=== PATIENT | female | born 1970 | race African-American/Black ===

== ENCOUNTER 2016-10-20 01:27 | Inpatient (IN) | payer OTHER ==
--- NOTE | ~2016-10-20 | PN ---
Unit #: [id number] #: [id number] Patient: DAYLIN ARELLANO [id number] [facility] [address] [place] [address] [id number] MR#: [id number] NAME: DAYLIN ARELLANO ROOM: [facility] Age: 46 Sex: F Admission Date: 10/20/2016 : 1970 Attending Physician: Marciano Lyn M.D. Admitting Physician: Marciano Lyn M.D. Primary Care Physician: Jose Chadn PROGRESS NOTES DATE 10/23/2016 DISCUSSION Ms. Daylin Arellano is a 46-year-old female, seen on 10/23/2016. The patient interviewed, chart reviewed, and obtained information from the nursing staff. The patient continues to be sad, dysphoric, anxious, reported feeling sad, depressed but making progress. Vital signs stable, 98.4, 97, and 110/84. The patient was able to participate in group, but reporting flat affect, sad, dysphoric mood. The patient was able to maintain safe behavior. REVIEW OF SYSTEMS Complete review of systems unremarkable. MENTAL STATUS EXAMINATION General appearance: Patient dressed casually in hospital attire. Attention span and concentration, poor. Oriented to place and person. Mood and affect, labile. Speech, monotone. Thought process, concrete. The patient denied any thoughts of harming self or others or any psychotic symptoms. Recent and remote memory, poor. Insight and judgment, poor. DIAGNOSES 1. Mood disorder, NOS. 2. Cocaine use disorder, severe. ASSESSMENT/PLAN Advised to continue with the current medication and therapeutic protocol and if needed consider further adjustment of medication. Dictated by... Jose Sullivan/davion TD: 10/26/2016 06:03 JOB #: [id number] Unit #: [id number] #: [id number] Patient: DAYLIN ARELLANO PROGRESS NOTES Page 1 of 1 X Marciano Lyn MD PROGRESS NOTE
--- NOTE | ~2016-10-20 | PN ---
Unit #: [id number] #: [id number] Patient: DAYLIN ARELLANO [id number] [facility] [address] [place] [address] [id number] MR#: [id number] NAME: DAYLIN ARELLANO ROOM: [facility] Age: 46 Sex: F Admission Date: 10/20/2016 : 1970 Attending Physician: Marciano Lyn M.D. Admitting Physician: Marciano Lyn M.D. Primary Care Physician: Aldair Pat M.D. [facility] PROGRESS NOTES DATE 10/22/2016 DISCUSSION Ms. Daylin Arellano is a 46-year-old female seen on 10/22/2016. Patient interviewed. Chart reviewed. Obtained information from nursing staff. Patient was compliant, cooperative. Mood sad, dysphoric, flat affect, guarded. Patient reports sleeping good, decrease in anxiety but still feeling sad, depressed, withdrawn, isolative, guarded. Patient tolerating medication fairly well. Still seclusive, isolative, guarded. Complete review of system unremarkable. MENTAL STATUS EXAMINATION General appearance, patient dressed casually. Attention span, concentration fair. Oriented in place and person. Patient denied any side effects from medication. Vital signs 98.4, 97, 110/79. Patient still endorsing symptoms such as feeling sad, depressed. Complete review of system unremarkable. MENTAL STATUS EXAMINATION General appearance, patient's hygiene and grooming poor, dressed in hospital attire. Attention span, concentration poor. Oriented in place and person. Mood and affect sad, dysphoric. Speech slow in volume. Thought process circumstantial. Patient denied any thoughts of harming self or others but hopelessness, worthless, guarded, paranoid, withdrawn, isolative, seclusive. Recent and remote memory poor. Insight and judgement poor. DIAGNOSES 1. Cocaine use disorder, moderate. 2. Mood disorder NOS. 3. Alcohol use disorder, moderate. ASSESSMENT/PLAN Advised to continue with current medication and therapeutic protocol. If needed, consider further adjustment of medication. Dictated by... Marciano Lyn M.D. Unit #: [id number] #: [id number] Patient: DAYLIN ARELLANO CHARI/zia TD: 10/25/2016 16:06 JOB #: [id number] [facility] PROGRESS NOTES Page 1 of 1 X Marciano Lyn MD PROGRESS NOTE
--- NOTE | ~2016-10-20 | HP ---
Unit #: [id number] #: [id number] Patient: DAYLIN ARELLANO [id number] [place] [address] [id number] I MR#: [id number] NAME: DAYLIN ARELLANO ROOM: [facility] Age: 46 Sex: F Admission Date: 10/20/2016 : 1970 Attending Physician: Marciano Lyn M.D. Admitting Physician: Marciano Lyn M.D. Primary Care Physician: Aldair Pat M.D. HISTORY AND PHYSICAL HISTORY OF PRESENT ILLNESS Daylin is a 46 year old admitted to [facility] with depression. 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 PAST SURGICAL HISTORY 1. Cholecystectomy. 2. Splenectomy. 3. Hernia repair. 4. section x2. ALLERGIES Sulfa SOCIAL HISTORY Smokes one half pack per day. Drinks beer on a daily basis and has a history of illicit drug use to include marijuana and crack cocaine. FAMILY HISTORY Medically noncontributory. REVIEW OF SYSTEMS CONSTITUTIONAL: No fever or chills. HEENT: Denies any sore throat, ear pain or runny nose. CARDIOVASCULAR: Denies chest pain, irregular heart rhythm or palpitations. CHEST: Denies shortness of breath or cough. No hemoptysis. GASTROINTESTINAL: Denies nausea, vomiting, diarrhea or chronic constipation. ENDOCRINE: Denies history of increased thirst or urination. No recent significant weight loss or gain. GENITOURINARY: Denies dysuria, frequency, or hematuria. SKIN: Denies any rashes. HEMATOLOGIC: Denies history of increased bleeding or bruising. MUSCULOSKELETAL: Denies any hot, swollen joints. No generalized muscle pain. NEUROLOGIC: Denies problems with vision or speech. No frequent, severe headaches. No numbness, tingling or weakness in any extremities. Denies loss of bladder or bowel control. CURRENT MEDICATIONS 1. Citalopram 10 mg q.h.s. Unit #: [id number] #: [id number] Patient: DAYLIN ARELLANO 2. Doxepin 75 mg q.h.s. 3. Remeron 15 mg q.h.s. 4. Latuda 80 mg q.h.s. 5. Risperdal 1 mg q.h.s. 6. Xanax 0.5 mg b.i.d. 7. [place] 10/325 1 tab q 6 hours p.r.n. 8. Nicotine patch 14 mg q day 9. Milk of Magnesia p.r.n. 10. Maalox p.r.n. 11. Tylenol p.r.n. PHYSICAL EXAMINATION GENERAL: Alert, thin, in no apparent distress. VITAL SIGNS: Blood pressure 114/84, heart rate 100, respirations 16, temperature 98.6. WEIGHT: 125 pounds. HEIGHT: 5'5". SKIN: Warm and dry without rash or lesion. HEENT: Normocephalic. TMs not viewed. Oral and nasal passages clear. Conjunctivae clear. Pupils equal, round and reactive to light and accommodation. Extraocular movements intact. NECK: Supple without lymphadenopathy or thyromegaly. HEART: Regular rate and rhythm without murmur. LUNGS: Clear. ABDOMEN: Soft, nontender. : Not done. EXTREMITIES: No evidence of cyanosis, clubbing or edema. Moves all extremities without focal deficit. NEUROLOGICAL: Grossly within normal limits. Cranial Nerves: II: Visual carter are intact. III, IV AND : Extraocular movements are intact. Pupils are equal, round and reactive to light. V: Facial sensation is grossly normal. VII: Facial movements and expression are normal. VIII: Auditory acuity grossly intact. IX, X: Uvula is midline. Phonation is normal. XI: Patient shrugs shoulders and turns head normally. XII: Tongue protrudes in the midline. Sensory and Motor Function: Sensory and motor sensation is grossly normal. Motor: moves all extremities well. Coordination: Gait is normal. Deep Tendon Reflexes: Intact. IMPRESSION Psychiatric admission RECOMMENDATIONS PSYCHIATRIC: Per psychiatrist. MEDICAL: I see no contraindications to participating in facility's activities. MEDICAL PROGNOSIS Good. MEDICAL CONDITION Stable. Unit #: [id number] #: [id number] Patient: DAYLIN ARELLANO Dictated by... Kat Fitzpatrick P.A.-C. for Jose Dinero/miriam TD: 10/20/2016 23:29 JOB #: [id number] HISTORY AND PHYSICAL Page 1 of 1 X Kat Fitzpatrick HISTORY AND PHYSICAL
--- NOTE | ~2016-10-20 | CO ---
Unit #: [id number] #: [id number] Patient: DAYLIN ARELLANO [id number] [place] [address] [id number] I MR#: [id number] NAME: DAYLIN ARELLANO ROOM: [facility] Age: 46 Sex: F Admission Date: 10/20/2016 : 1970 Attending Physician: Marciano Lyn M.D. Primary Care Physician: Aldair Pat M.D. Consultation Date: 10/24/2016 CONSULTATION REPORT ORDERING PROVIDER Dr. Lyn. REASON FOR CONSULT Abnormal UA. SUBJECTIVE The patient reports that she has been having some burning with urination. She denies hematuria or urinary frequency. OBJECTIVE Urinalysis shows 1+ leukocyte esterase, positive nitrite, and 2+ bacteria. The remainder of her examination was unremarkable. ASSESSMENT Urinary tract infection. PLAN Plan is to start Augmentin and get a urine culture and sensitivity. Dictated by... Brit Uribe A.P.R.N. for Jose Dinero/cash TD: 10/24/2016 14:11 JOB #: [id number] CONSULTATION REPORT Page 1 of 1 X BRIT URIBE APRN CONSULTATION REPORT
--- NOTE | ~2016-10-20 | PN ---
Unit #: [id number] #: [id number] Patient: DAYLIN ARELLANO [id number] [facility] [address] [place] [address] [id number] I MR#: [id number] NAME: DAYLIN ARELLANO ROOM: [facility] Age: 46 Sex: F Admission Date: 10/20/2016 : 1970 Attending Physician: Marciano Lyn M.D. Admitting Physician: Marciano Lyn M.D. Primary Care Physician: Jose Chand PROGRESS NOTES DATE OF SERVICE 10/24/2016 DISCUSSION Daylin Arellano is a 46-year-old female seen on 10/24/2016. The patient continues to be isolative, flat affect. Sad, dysphoric mood. The patient constantly focused on her medication and dosage although seems somewhat drowsy in her room. Currently focused on her pain medication as well as Xanax. Complete Review of Systems: Unremarkable. MENTAL STATUS EXAMINATION General Appearance: The patient dressed in hospital attire. Attention span, concentration: Poor. Oriented in place and person. Mood and affect labile. Speech: Monotone. Thought process: [place]. The patient denied any thoughts of harming self or others but guarded. Recent and remote memory: Poor. Insight and judgment: Poor. DIAGNOSES 1. Mood disorder not otherwise specified. 2. Cocaine use disorder, severe. ASSESSMENT/PLAN Advised to continue with current medication and therapeutic protocol. If needed, consider further adjustment of medication. Dictated by... Jose Sullivan/malini TD: 10/27/2016 08:25 JOB #: [id number] Unit #: [id number] #: [id number] Patient: DAYLIN ARELLANO PROGRESS NOTES Page 1 of 1 X Marciano Lyn MD X PROGRESS NOTE
--- NOTE | ~2016-10-20 | PA ---
Unit #: [id number] #: [id number] Patient: DAYLIN ARELLANO [id number] [facility] [address] [place] [address] [id number] MR#: [id number] NAME: DAYLIN ARELLANO ROOM: [facility] Age: 46 Sex: F Admission Date: 10/20/2016 : 1970 Date of Assessment: 10/20/2016 Attending Physician: Marciano Lyn M.D. Admitting Physician: Marciano Lyn M.D. Primary Care Physician: Aldair Pat M.D. PSYCHIATRIC ASSESSMENT INFORMANTS The patient reliability, fair informant and chart reliability, good. CHIEF COMPLAINT Suicidal ideation and hallucination. HISTORY OF PRESENT ILLNESS Ms. Daylin Arellano is a 46-year-old female, seen on 10/20/2016 on . The patient presented with above-mentioned complaint. The patient reported feeling sad, depressed, suicidal ideation, thoughts of harming and plan. The patient reported experiencing life stressor, reported auditory hallucination, command hallucination, and thoughts of harming herself. The patient reported being out of medication for almost a week. The patient denied any homicidal ideation or visual hallucination. Reported cocaine use and alcohol use. Reported last use was on 10/18/2016 and cocaine was 3 days ago. The patient reported she receives disability for sickle cell. The patient reports she has 2 years of college and career counselor degree in Human Services. The patient reported living with mom for approximately a month and reported children are adults. The patient reports recent break-up with boyfriend and reported strained relationship with boyfriend. Reported sleeping 3 hours. Feeling of hopelessness and worthlessness and nightmares. Needing inpatient admission at this time for psychiatric stabilization. PAST PSYCHIATRIC HISTORY Remarkable for history of previous treatment at [facility] inpatient, [facility], [facility], and [facility] for suicidal ideation, depression, and psychosis. FAMILY HISTORY AND SOCIAL HISTORY The patient reports that she has a good support from family. No history of any abuse. Family psychiatric illness is remarkable for history of alcohol problem in father. Schizophrenia in uncle. No known history of any abuse. MEDICAL HISTORY Remarkable for history of sickle cell disease. Musculoskeletal; muscle strength and tone, no atrophy or abnormal movement. Gait normal. MEDICATION HISTORY The patient is on Latuda, Lortab, Risperdal, doxepin, and Xanax. ALLERGIES Unit #: [id number] #: [id number] Patient: DAYLIN ARELLANO No known drug allergies. SUBSTANCE ABUSE HISTORY History of alcohol abuse and cocaine abuse. REVIEW OF SYSTEMS HEENT: Eyes, clear. Ears, nose, mouth, and throat; clear. CARDIOVASCULAR: Unremarkable. RESPIRATORY: Unremarkable. GI: Unremarkable. : Unremarkable. SKIN: Unremarkable. LYMPH NODE: Unremarkable. NEUROLOGIC: Unremarkable. ENDOCRINE: Unremarkable. HEMATOLOGIC: Unremarkable. ALLERGIC/IMMUNOLOGIC: Unremarkable. MUSCULOSKELETAL: Muscle strength and tone, no atrophy or abnormal movement. Gait normal. MENTAL STATUS EXAMINATION CONSTITUTIONAL: Measurement of vital signs; temperature 97.7, heart rate 103, respiratory rate 16, and blood pressure 114/85. Height 5 feet 5 inches and weight 125 pounds. GENERAL APPEARANCE: The patient dressed casually. The patient did not show any facial deformity. MUSCULOSKELETAL: Please see above. PSYCHIATRIC EXAMINATION Description of speech; regular rate, normal volume, normal articulation, coherent, and spontaneous. Description of thought process, goal directed. Description of association, intact. Description of abnormal psychotic thinking; the patient denied any hallucinations or delusions, but mood lability, depression, suicidal ideation, and substance abuse. Description of the patient's judgment: Concerning everyday activity, poor. Social situation, poor. Concerning psychiatric condition, poor. Complete mental status examination; oriented in time, place, and person. Recent and remote memory, fair. Attention span and concentration, fair. Language, able to name object and repeat phrases. Fund of knowledge, aware of current event and passive vocabulary intact. Mood and affect, sad and dysphoric. Insight and judgment, fair to poor. ASSETS AND LIABILITIES Assets, the patient is articulate and able to take care of her ADL. Liability, history of substance abuse and depression. ADMITTING DIAGNOSES Psychiatric: Major depressive disorder, recurrent, severe, F33.2; cocaine use disorder, severe, F14.20; and alcohol use disorder, severe, F10.20. Secondary diagnosis: Deferred. Medical diagnosis: History of sickle cell disease. Stressors: Psychosocial stressors. PSYCHIATRIC PLAN AND TREATMENT GOAL AND DISCHARGE PLAN Unit #: [id number] #: [id number] Patient: DAYLIN ARELLANO 1. Advised to admit the patient in inpatient unit. Provide safe, supportive, and structured environment. 2. Ordered labs; CBC, CMP, UA, and UDS. 3. Advised to resume home medication and if needed, consider further adjustment of medication. The patient was started with detox protocol and detox monitoring. The patient to continue with Celexa, doxepin, Remeron, Latuda, Risperdal, and Xanax. We will continue to monitor. If needed, consider further adjustment of medication. TREATMENT GOAL To attain euthymic mood, gain insight into her problem, and learn coping skills. DISCHARGE PLAN Plan to stabilize the patient and consider followup in outpatient program. ESTIMATED LENGTH OF STAY 7 to 10 days. Dictated by... Jose Sullivan/cash TD: 10/20/2016 16:59 JOB #: [id number] PSYCHIATRIC ASSESSMENT Page 1 of 1 X Marciano Lyn MD X PSYCHIATRIC ASSESSMENT
--- NOTE | ~2016-10-20 | DS ---
Unit #: [id number] #: [id number] Patient: DAYLIN ARELLANO [id number] [facility] [address] [place] [address] [id number] I MR#: [id number] NAME: DAYLIN ARELLANO ROOM: [facility] Age: 46 Sex: F Admission Date: 10/20/2016 : 1970 Discharge Date: 10/25/2016 Attending Physician: Marciano Lyn M.D. Primary Care Physician: Aldair Pat M.D. DISCHARGE SUMMARY REASON FOR ADMISSION Depression, suicidal ideation, and substance abuse. DIAGNOSTIC STUDIES LABORATORY RESULTS: Urine drug screen positive for benzodiazepine, cocaine, and opioids. HOSPITAL COURSE The patient was admitted to inpatient unit on on 10/20/2016 and discharged on 10/25/2016. The patient was treated on the inpatient unit with group therapy, individual therapy, and medication management. The patient responded well with the above modalities of treatment and following medications. DISCHARGE MEDICATIONS Celexa 10 mg daily for depression, Sinequan 75 mg daily for sleep, Remeron 15 mg at bedtime for mood symptoms, Latuda 80 mg daily for mood stabilization, and Risperdal 1 mg at bedtime for mood stabilization. DISCHARGE DIAGNOSES Psychiatric: 1. Major depressive disorder, recurrent, severe, F33.2. 2. Cocaine use disorder, severe, F14.20. 3. Alcohol use disorder, severe, F10.20. Secondary diagnosis: Deferred. Medical diagnosis: History of sickle cell disease. Stressors: Psychosocial stressors. DISCHARGE INSTRUCTIONS The patient is to follow up in outpatient clinic as per director social service. CONDITION ON DISCHARGE The patient was pleasant and cooperative. Denied any psychotic symptom or any suicidal ideation. PROGNOSIS Guarded. DIET AND ACTIVITY As tolerated. Unit #: [id number] #: [id number] Patient: DAYLIN ARELLANO Dictated by... Marciano Lyn M.D. SZC/italial TD: 10/26/2016 13:13 JOB #: [id number] DISCHARGE SUMMARY Page 1 of 1 X Marciano Lyn MD X DISCHARGE SUMMARY
--- NOTE | ~2016-10-20 | A ---
[facility] DATE: 10/20/16 Patient: DAYLIN ARELLANO Physician: TIMI Address: [address] [place] [address] Room/Bed: [address], Zip: [place] [address] Admit Date: 10/20/16 Date of : [birth year] Height: 5 5 Weight: 124 56.699 NUTRITIONAL ASSESSMENT: REASON: 2 NUTRITIONAL RISK POINTS- UNINTENTIONAL WEIGHT LOSS, CHEWING/SWALLOWING DIFFICULTIES PATIENT ADMITTED FOR DEPRESISON AND AUDITORY HALLUCINATIONS PMH: SICKLE CELL ANEMIA Anthropometrics: HT: 5'5", WT: 125#, BMI: 20.8, %IBW: 100 Labs: NO LABS AVAILABLE Meds: REMERON, RISPERDAL Assessment: PATIENT IS A 46 Y/O FEMALE ADMITTED FOR DEPRESSION AND AUDITORY HALLUCINATIONS. PATIENT IS CURRENTLY ON DISABILITY, LIVES WITH HER MOTHER, SMOKES 1 PPD, HAS DAILY ETOH USE, AND FREQUENT COCAINE USE. PATIENT STATED A POOR APPETITE WITH A 25# WEIGHT LOSS OVER LAST SEVERAL MONTHS. WEIGHT HX PER [facility] SHOWS AN 18# WEIGHT GAIN OVER THE LAST 10 MONTHS (107# - 125#). IT IS NOTED THAT PATIENT HAS BEEN NON-COMPLIANT WITH HER MEDICATIONS AND SHE HAS A HX OF INPATIENT PSYCH TREATMENT AT THIS FACILITY. PATIENT CURRENTLY DOES NOT HAVE ANY C/O CHEWING/SWALLOWING DIFFICULTIES AND IS ON A REGULAR DIET. THERE ARE NO SKIN OR GI ISSUES NOTED ATT. Dx: NO NUTRITION DX Intervention: 1. REGULAR DIET, 2. MEDS PER MD, 3. PSYCH Monitoring, Evaluation and Goals: 1. ADEQUATE PO INTAKES >50% OF MEALS 2. PREVENT, CORRECT MICRO/MACRO NUTRIENT DEFICIENCIES 3. MAINTAIN CURRENT WEIGHT, PREVENT WEIGHT LOSS MONITOR: WEIGHTS, LABS, PO/FLUID INTAKES Recommendations: 1. CONTINUE REGULAR DIET TOLERATED. IF PATIENT HAS C/O HUNGER PLEASE SEND ORDER FOR LARGE PORTION ENTREES AND RD WILL APPROVE 2. ENCOURAGE ADEQUATE PO AND FLUID INTAKES 3. IF PO INTAKES FALL BELOW 50% OF MEALS PLEASE ORDER ENSURE BID TO PROMOTE ADEQUATE KCAL AND PROTEIN INTAKES [facility] DATE: 10/20/16 Patient: DAYLIN ARELLANO Physician: TIMI Address: [address] [place] [address] Room/Bed: [address], Zip: [place] [address] Admit Date: 04/12/17 Date of : [birth year] Height: 5 5 Weight: 124 56.699 4. OBTAIN WEIGHTS ROUTINELY (EVERY 3-4 DAYS) TO ENSURE PATIENT RECEIVES ADEQUATE PO INTAKES 5. IF PATIENT HAS C/O CHEWING OR SWALLOWING DIFFICULTIES PLEASE CONSULT WORD PROCESSING MACHINE OPERATOR FOR FURTHER ASSESSMENT RD TO F/U PER PROTOCOL AND PRN R/T PATIENT NOT AT NUTRITIONAL RISK ATT Respectfully, JAZLYN MATSON, RAFAEL, LD [employer] [facility] [employer] cc: client file
--- NOTE | ~2016-10-20 | PN ---
Unit #: [id number] #: [id number] Patient: DAYLIN ARELLANO [id number] [facility] [address] [place] [address] [id number] MR#: [id number] NAME: DAYLIN ARELLANO ROOM: [facility] Age: 46 Sex: F Admission Date: 10/20/2016 : 1970 Attending Physician: Marciano Lyn M.D. Admitting Physician: Marciano Lyn M.D. Primary Care Physician: Jose Chand NOTES DATE OF SERVICE: 10/21/2016 DISCUSSION Ms. Daylin Arellano is a 46-year-old female, seen on 10/21/2016. The patient interviewed, chart reviewed, and obtained information from nursing staff. The patient was attending group. Hygiene and grooming, fair. Mood continues to be sad and dysphoric. Reported severe anxiety. Feeling sad, depressed, and anxious. The patient reported not able to get her anxiety medication and pain medication as prescribed earlier. The patient denied any current thoughts of harming self or others, but reports having passive SI. REVIEW OF SYSTEMS Complete review of systems unremarkable. MENTAL STATUS EXAMINATION The patient's hygiene and grooming, poor. Dressed in hospital attire. Attention span and concentration, poor. Oriented in place and person. Mood and affect were sad, dysphoric, and withdrawn. Speech, monotone. Thought process, concrete. The patient reported having passive SI, but denied any homicidal ideation or psychotic symptom. Recent and remote memory, poor. Insight and judgment, poor. DIAGNOSES Mood disorder, not otherwise specified; cocaine use disorder; and alcohol use disorder, moderate. ASSESSMENT AND PLAN Advised to continue with current medication and therapeutic protocol. If needed, consider further adjustment of medication. Dictated by... Jose Sulilvan/cash TD: 10/22/2016 14:43 JOB #: [id number] Unit #: [id number] #: [id number] Patient: DAYLIN ARELLANO SAMANTHA NOTES Page 1 of 1 X Marciano Lyn MD X PROGRESS NOTE
[2016-10-20 12:30] LABS: BASOPHIL# 0.1 X10e3 (0-0.3); BASOPHIL% 0.9 % (0-2.5); EOSINOPHIL# 0.7 X10e3 (0-0.7); EOSINOPHIL% 6.6 % (0.0-7.0); HEMATOCRIT 33.3 % (35.0-45.0); HEMOGLOBIN 11.3 gm/dL (12.0-16.0); LYMPHOCYTE# 3.3 X10e3 (1.0-3.5); LYMPHOCYTE% 31.8 % (17.0-45.0); MEAN CELL VOLUME 83.5 FL (83-96); MEAN CORPUSCULAR HEMOGLOBIN 28.3 PG (28-34); MEAN CORPUSCULAR HGB CONC 33.9 g/dL (30-36); MONOCYTE# 0.8 X10e3 (0-1.0); MONOCYTE% 7.3 % (3.0-12.0); NEUTROPHIL# 5.6 X10e3 (1.5-7.1); NEUTROPHIL% 53.4 % (40-75); PLATELET COUNT 236 X10e3 (140-420); RED BLOOD COUNT 3.98 X10e (3.90-5.30); RED CELL DISTRIBUTION WIDTH 20.2 % (11.0-15.5); WHITE BLOOD COUNT 10.4 X10e3 (4.0-10.5)
[2016-10-20 12:37] LABS: DIFF IND NO
[2016-10-20 13:27] LABS: THYROID STIMULATING HORMONE 1.06 uIU/ml (0.34-5.60)
[2016-10-20 13:34] LABS: FREE THYROXIN (T4) 0.85 ng/dL (0.58-1.64)
[2016-10-20 13:48] LABS: BILIRUBIN,TOTAL 0.6 mg/dL (0.2-2.0); BUN/CREATININE RATIO 11.11; CALCIUM SERUM 8.6 mg/dL (8.4-10.2); CREATININE SERUM 0.9 mg/dL (0.6-1.4); GLOM FILT RATE Estimated 88.9 mL/min (>60); POTASSIUM 3.9 mmol/L (3.5-5.1); PROTEIN TOTAL SERUM 5.5 g/dL (6.0-8.3)
[2016-10-22 10:07] LABS: URINE APPEARANCE CLOUDY; URINE BILIRUBIN NEG (NEG); URINE BLOOD NEG (NEG); URINE COLOR YELLOW; URINE GLUCOSE NEG (NEG); URINE KETONE NEG (NEG); URINE LEUKOCYTE ESTERASE 1+ (NEG); URINE NITRATE POS (NEG); URINE PH 5.5 (5-8); URINE PROTEIN NEG (NEG); URINE SPECIFIC GRAVITY 1.009 (1.003-1.035); URINE UROBILINOGEN 0.2 MG/DL (NEG)
[2016-10-22 10:10] LABS: U HYALINE CASTS AUWI 0-2 /[LPF]; URBCS1 AUWI 0-2 /[HPF] (0-2); URINE BACTERIA AUWI 2+ (NEGATIVE); URINE SQUAMOUS EPITHELIAL CELL NONE SEEN /[HPF]; UWBCS1 AUWI 25-50 (0-5)
[2016-10-22 11:00] LABS: AMPHETAMINE NEG (NEG); BARBITURATES NEG (NEG); BENZODIAZEPINES POS (NEG); COCAINE POS (NEG); MARIJUANA NEG (NEG); OPIATES POS (NEG); TRICYCLIC ANTIDEPRESSANTS POS (NEG); U METHADONE NEG (NEG)
== END 2016-10-25 09:58 | DRG 885 ==
LOC: P1E 01:27
PROVIDERS: Psychiatry & Neurology Psychiatry
PROC: HZ2ZZZZ Detoxification Services for Substance Abuse Treatment (ICD-10-PCS; principal; 2016-10-20)
DX: F33.2 Major depressive disorder, recurrent severe without psychotic features (principal); R45.851 Suicidal ideations; F14.20 Cocaine dependence, uncomplicated; N39.0 Urinary tract infection, site not specified; D57.1 Sickle-cell disease without crisis; F10.20 Alcohol dependence, uncomplicated; F17.210 Nicotine dependence, cigarettes, uncomplicated; Z88.2 Allergy status to sulfonamides; F39 Unspecified mood [affective] disorder
CPT/HCPCS: 80053; 80307; 81003; 84439; 84443; 84703; 85025